=== PATIENT | male | born 1985 | race Caucasian/White ===

== ENCOUNTER 2018-07-16 16:23 | Emergency (ER) | payer SELFPAY ==
[2018-07-16] MEDS ORDERED: FAMOTIDINE 20 MG/2 ML VIAL IV ONE (17:38)
[2018-07-16] MEDS ORDERED: NA CHLORIDE 0.9% 1,000 ML ONE (17:38)
[2018-07-16] MEDS ORDERED: METHYLPREDNISOLONE 125 MG INJ ONE (17:38)
--- NOTE | 2018-07-16 17:58 | EDPHYS ---
Physician Documentation [facility] Name: Maurice Groves Age: 33 yrs Sex: Male : 1985 Arrival Date: 07/16/2018 Time: 16:24 Bed 27 Private MD: ED Physician Josue Sunshine HPI: 07/16 17:55 This 33 yrs old Male presents to ER via Ambulatory with complaints of Hives. kb 17:55 The patient presents with itching, rash, of the right leg and left leg. Onset: The kb symptoms/episode began/occurred 3 day(s) ago. Associated signs and symptoms: Pertinent positives: hives, Pertinent negatives: abdominal pain, Altered mental status chest pain, dysphagia, fever, headache, Light headed nausea, rash, shortness of breath, swelling, Syncope vomiting. Possible causes: The patient has no known obvious cause for the symptoms. At home the patient or guardian has treated the symptoms with Benadryl. Severity of symptoms: At their worst the symptoms were moderate in the emergency department the symptoms are unchanged. The patient has experienced similar episodes in the past, a few times. The patient has not recently seen a physician. Historical: - Allergies: 16:48 No Known Allergies; ph - Home Meds: 16:48 None [Active]; ph - PMHx: 16:48 None; ph - PSHx: 16:48 None; ph - Immunization history:: Adult Immunizations up to date. - Social history:: Smoking status: Patient uses tobacco products, smokes one-half pack cigarettes per day. - Ebola Screening: : No symptoms or risks identified at this time. ROS: 17:55 Constitutional: Negative for fever, chills, and weight loss, Cardiovascular: Negative kb for chest pain, palpitations, and edema, Respiratory: Negative for shortness of breath, cough, wheezing, and pleuritic chest pain, Abdomen/GI: Negative for abdominal pain, nausea, vomiting, diarrhea, and constipation, Back: Negative for injury and pain, : Negative for injury, bleeding, discharge, and swelling, MS/Extremity: Negative for injury and deformity, Neuro: Negative for headache, weakness, numbness, tingling, and seizure. 17:55 Skin: Positive for rash, of the right leg and left leg. Exam: 17:55 Constitutional: This is a well developed, well nourished patient who is awake, alert, kb and in no acute distress. Head/Face: Normocephalic, atraumatic. Chest/axilla: Normal chest wall appearance and motion. Nontender with no deformity. No lesions are appreciated. Cardiovascular: Regular rate and rhythm with a normal S1 and S2. No gallops, murmurs, or rubs. Normal PMI, no JVD. No pulse deficits. Respiratory: Lungs have equal breath sounds bilaterally, clear to auscultation and percussion. No rales, rhonchi or wheezes noted. No increased work of breathing, no retractions or nasal flaring. Abdomen/GI: Soft, non-tender, with normal bowel sounds. No distension or tympany. No guarding or rebound. No evidence of tenderness throughout. MS/ Extremity: Pulses equal, no cyanosis. Neurovascular intact. Full, normal range of motion. Neuro: Awake and alert, GCS 15, oriented to person, place, time, and situation. Cranial nerves II-XII grossly intact. Motor strength 5/5 in all extremities. Sensory grossly intact. Cerebellar exam normal. Normal gait. 17:55 Skin: consistent with urticaria, on the right leg and left leg. Vital Signs: 16:46 BP 128 / 88; Pulse 106; Resp 18; Temp 97.9; Pulse Ox 100% on R/A; Weight 97.52 kg; ph Height 5 ft. 10 in. (177.80 cm); 18:42 BP 133 / 87; Pulse 85; Resp 18; Temp 97.7; Pulse Ox 99% on R/A; ph 16:46 Body Mass Index 30.85 (97.52 kg, 177.80 cm) ph MDM: 17:24 Patient medically screened. kb 17:55 Data reviewed: vital signs, nurses notes. Data interpreted: Pulse oximetry: on room air kb is 100 %. Interpretation: normal. Counseling: I had a detailed discussion with the patient and/or guardian regarding: the historical points, exam findings, and any diagnostic results supporting the discharge/admit diagnosis, the need for outpatient follow up, a family practitioner, to return to the emergency department if symptoms worsen or persist or if there are any questions or concerns that arise at home. 07/16 17:30 Order name: IV Start; Complete Time: 17:34 kb Administered Medications: 17:36 Drug: NS 0.9% 1000 ml Route: IV; Rate: 1000 ml; Site: left antecubital; Delivery: tl3 Primary tubing; 18:30 Follow up: Response: No adverse reaction; IV Status: Completed infusion; IV Intake: sv 1000ml 17:38 Drug: Pepcid 20 mg Route: IVP; Site: left antecubital; sv 18:00 Follow up: Response: No adverse reaction sv 17:40 Drug: SOLU-Medrol 125 mg Route: IVP; Site: left antecubital; sv 18:00 Follow up: Response: No adverse reaction sv Disposition: 07/17 07:00 Co-signature as Attending Physician, Josue Sunshine MD I agree with the assessment and sonja plan of care. Disposition: 07/16/18 17:57 Discharged to Home. Impression: Urticaria. - Condition is Stable. - Discharge Instructions: Hives, [id number]. - Prescriptions for Pepcid 20 mg Oral Tablet - take 1 tablet by ORAL route every 12 hours for 5 days; 10 tablet. Prednisone 20 mg Oral Tablet - take 1 tablet by ORAL route once daily for 5 days; 5 tablet. - Medication Reconciliation Form, Thank You Letter, Antibiotic Education, Prescription Opioid Use form. - Follow up: Emergency Department; When: As needed; Reason: Worsening of condition. Follow up: Private Physician; When: 2 - 3 days; Reason: Recheck today's complaints, Continuance of care, Re-evaluation by your physician. Signatures: Yee Houston, KYLEIGH-C KYLEIGH-Ronel Meier RN RN sv Anderson, Corey, MD MD cha Hall, Patricia, RN RN Marianna Mckinnon RN RN tl3 Corrections: (The following items were deleted from the chart) 07/16 18:44 17:57 07/16/2018 17:57 Discharged to Home. Impression: Urticaria. Condition is Stable. ph Forms are Medication Reconciliation Form, Thank You Letter, Antibiotic Education, Prescription Opioid Use. Follow up: Emergency Department; When: As needed; Reason: Worsening of condition. Follow up: Private Physician; When: 2 - 3 days; Reason: Recheck today's complaints, Continuance of care, Re-evaluation by your physician. kb
--- NOTE | 2018-07-16 17:58 | ER ---
Nurse's Notes [facility] Name: Maurice Groves Age: 33 yrs Sex: Male : 1985 Arrival Date: 07/16/2018 Time: 16:24 Bed 27 Private MD: Diagnosis: Urticaria Presentation: 07/16 16:42 Presenting complaint: Patient states: " I think my food allergies are acting up again, ph I have hives all over my body." Pt reports that symptoms began 4 days ago, hives noted to srinivas arms, legs, trunk and buttocks. Pt denies SOB, reports multiple food allergies as a child. Transition of care: patient was not received from another setting of care. Onset: The symptoms/episode began/occurred last week. Anaphylaxis evaluation, no signs or symptoms of anaphylaxis were noted. Onset of symptoms was July 16, 2018. Risk Assessment: Do you want to hurt yourself or someone else? Patient reports no desire to harm self or others. Initial Sepsis Screen: Does the patient meet any 2 criteria? No. Patient's initial sepsis screen is negative. Does the patient have a suspected source of infection? No. Patient's initial sepsis screen is negative. 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 16:42 Method Of Arrival: Ambulatory ph 16:42 Acuity: [place] 4 ph Historical: - Allergies: 16:48 No Known Allergies; ph - Home Meds: 16:48 None [Active]; ph - PMHx: 16:48 None; ph - PSHx: 16:48 None; ph - Immunization history:: Adult Immunizations up to date. - Social history:: Smoking status: Patient uses tobacco products, smokes one-half pack cigarettes per day. - Ebola Screening: : No symptoms or risks identified at this time. Screenin:28 Abuse screen: Denies threats or abuse. Denies injuries from another. Nutritional sv screening: No deficits noted. Tuberculosis screening: No symptoms or risk factors identified. Fall Risk None identified. Assessment: 17:25 General: Appears in no apparent distress. uncomfortable, well developed, Behavior is sv calm, cooperative, appropriate for age. Pain: Denies pain. Neuro: Level of Consciousness is awake, alert, obeys commands, Oriented to person, place, time, situation, Moves all extremities. Full function. Cardiovascular: Patient's skin is warm and dry. Respiratory: Airway is patent Respiratory effort is even, unlabored, Respiratory pattern is regular, symmetrical, Breath sounds are clear bilaterally. Derm: Skin is normal, Rash noted that is urticaria, on back, chest, abdomen, right arm, left arm, right leg and left leg started 4 days ago. Musculoskeletal: No signs and/or symptoms reported regarding the musculoskeletal system. Vital Signs: 16:46 BP 128 / 88; Pulse 106; Resp 18; Temp 97.9; Pulse Ox 100% on R/A; Weight 97.52 kg; ph Height 5 ft. 10 in. (177.80 cm); 18:42 BP 133 / 87; Pulse 85; Resp 18; Temp 97.7; Pulse Ox 99% on R/A; ph 16:46 Body Mass Index 30.85 (97.52 kg, 177.80 cm) ph ED Course: 16:24 Patient arrived in ED. as 16:46 Triage completed. ph 16:48 Arm band placed on. ph 17:24 Yee Houston FNP-C is PHCP. kb 17:24 Josue Sunshine MD is Attending Physician. kb 17:25 Ronel Kilpatrick RN is Primary Nurse. sv 17:28 Patient has correct armband on for positive identification. Bed in low position. Door sv closed. Head of bed elevated. 17:33 Inserted saline lock: 18 gauge in left antecubital area, using aseptic technique. sv Flushed left antecubital with 5 ml normal saline. 18:43 No provider procedures requiring assistance completed. IV discontinued, intact, ph bleeding controlled, No redness/swelling at site. Pressure dressing applied. Administered Medications: 17:36 Drug: NS 0.9% 1000 ml Route: IV; Rate: 1000 ml; Site: left antecubital; Delivery: tl3 Primary tubing; 18:30 Follow up: Response: No adverse reaction; IV Status: Completed infusion; IV Intake: sv 1000ml 17:38 Drug: Pepcid 20 mg Route: IVP; Site: left antecubital; sv 18:00 Follow up: Response: No adverse reaction sv 17:40 Drug: SOLU-Medrol 125 mg Route: IVP; Site: left antecubital; sv 18:00 Follow up: Response: No adverse reaction sv Intake: 18:30 IV: 1000ml; Total: 1000ml. sv Outcome: 17:57 Discharge ordered by MD. tirado 18:43 Discharged to home ambulatory. ph 18:43 Condition: good 18:43 Discharge instructions given to patient, Instructed on discharge instructions, follow up and referral plans. medication usage, Demonstrated understanding of instructions, follow-up care, medications, Prescriptions given X 2. 18:44 Patient left the ED. ph Signatures: Yee Houston, C2 TACTICAL ANALYSIS TECHNICIAN-C C2 TACTICAL ANALYSIS TECHNICIAN-Ronel Meier, RN RN Amaris Cardona Patricia, RN RN Marianna Mckinnon, RN RN tl3
[2018-07-16 18:54] VITALS: BP 133/87; TEMP 97.7; O2SAT 99
== END 2018-07-16 18:44 | disposition home or self-care (01) ==
LOC: ER 16:23
DX: L50.9 Urticaria, unspecified (principal); F17.210 Nicotine dependence, cigarettes, uncomplicated
CPT/HCPCS: 96361; 96374; 96375; 99283; J2930; J7030

== ENCOUNTER 2018-09-16 10:11 | Emergency (ER) | payer SELFPAY ==
[2018-09-16] MEDS ORDERED: FAMOTIDINE 20 MG/2 ML VIAL IV ONE (10:30)
[2018-09-16] MEDS ORDERED: METHYLPREDNISOLONE 125 MG INJ ONE (10:30)
--- NOTE | 2018-09-16 10:43 | ER ---
Nurse's Notes [facility] Name: Maurice Groves Age: 33 yrs Sex: Male : 1985 Arrival Date: 09/16/2018 Time: 10:11 Bed 6 Private MD: Diagnosis: Urticaria Presentation: 09/16 10:06 Presenting complaint: EMS states: called out for SOB, on arrival pt was A\T\O x4 sv ambulatory on scene. Lungs CTA, 98% RA BP 130/80. Hives started to entire body 2 days ago. Pt reports taking 5 tabs Benadryl last night and 5 tabs of Benadryl this morning at 0800. Transition of care: patient was not received from another setting of care. Onset: The symptoms/episode began/occurred 2 day(s) ago. Anaphylaxis evaluation, no signs or symptoms of anaphylaxis were noted. Onset of symptoms was September 14, 2018. Risk Assessment: Do you want to hurt yourself or someone else? Patient reports no desire to harm self or others. Initial Sepsis Screen: Does the patient meet any 2 criteria? No. Patient's initial sepsis screen is negative. Does the patient have a suspected source of infection? No. Patient's initial sepsis screen is negative. Care prior to arrival: None. 10:06 Method Of Arrival: EMS: [facility] sv 10:06 Acuity: [place] 3 sv Triage Assessment: 10:10 General: Appears in no apparent distress. uncomfortable, well developed, Behavior is sv calm, cooperative, appropriate for age. Pain: Denies pain. EENT: No signs and/or symptoms were reported regarding the EENT system. Neuro: Level of Consciousness is awake, alert, obeys commands, Oriented to person, place, time, situation, Moves all extremities. Full function Gait is steady, Speech is normal. Cardiovascular: Heart tones S1 S2 present Patient's skin is warm and dry. Respiratory: Airway is patent Respiratory effort is even, unlabored, Respiratory pattern is regular, symmetrical, Breath sounds are clear bilaterally. Derm: Skin is pink, warm \T\ dry. Rash noted that is itchy, red, raised, urticaria, on back, chest, abdomen, right arm, left arm, right leg and left leg. Musculoskeletal: Range of motion: intact in all extremities. Historical: - Allergies: 17:57 No Known Allergies; sv - Home Meds: 17:57 None [Active]; sv - PMHx: 17:57 seasonal allergies; sv - PSHx: 17:57 None; sv - Immunization history:: Adult Immunizations up to date. - Social history:: Smoking status: Patient uses tobacco products, smokes one-half pack cigarettes per day. - Ebola Screening: : No symptoms or risks identified at this time. Screenin:10 Abuse screen: Denies threats or abuse. Denies injuries from another. Nutritional sv screening: No deficits noted. Tuberculosis screening: No symptoms or risk factors identified. Fall Risk None identified. Assessment: 11:25 Reassessment: Patient is alert, oriented x 3, equal unlabored respirations, skin aa5 warm/dry/pink. Vital Signs: 10:10 BP 115 / 74; Pulse 90; Resp 18; Temp 98.7; Pulse Ox 96% ; Weight 97.52 kg; Height 5 ft. sv 9 in. (175.26 cm); Pain 0/10; 11:23 BP 122 / 80; Pulse 84; Resp 16 S; Temp 97.6(TE); Pulse Ox 99% on R/A; aa5 10:10 Body Mass Index 31.75 (97.52 kg, 175.26 cm) sv ED Course: 10:10 Patient has correct armband on for positive identification. Placed in gown. Bed in low sv position. monitoring coordinator on. Pulse ox on. NIBP on. Door closed. Warm blanket given. 10:10 Arm band placed on. sv 10:11 Patient arrived in ED. sv 10:12 Ronel Kilpatrick RN is Primary Nurse. sv 10:12 Ivan Guevara MD is Attending Physician. gs 10:13 Initial lab(s) drawn, by me. Inserted saline lock: 20 gauge in right antecubital area, jl7 using aseptic technique. Blood collected. 10:14 Triage completed. sv 11:25 IV discontinued, intact, bleeding controlled, No redness/swelling at site. Pressure aa5 dressing applied. 11:25 No provider procedures requiring assistance completed. sv Administered Medications: 10:28 Drug: Pepcid 20 mg Route: IVP; Site: right antecubital; sv 11:25 Follow up: Response: No adverse reaction aa5 10:30 Drug: SOLU-Medrol 125 mg Route: IVP; Site: right antecubital; sv 11:25 Follow up: Response: No adverse reaction aa5 10:33 CANCELLED (d/c'd by Dr Guevara): Benadryl 50 mg PO once sv Outcome: 10:42 Discharge ordered by . gs 11:25 Discharged to home ambulatory. aa5 11:25 Condition: stable 11:25 Discharge instructions given to patient, Instructed on discharge instructions, follow up and referral plans. medication usage, Demonstrated understanding of instructions, follow-up care, medications, Prescriptions given X 3. 11:26 Patient left the ED. sv Signatures: Ronel Kilpatrick RN RN sv Carolyn Connolly RN RN aa5 Femi Joyner RN RN jl7 Ivan Guevara MD MD gs Corrections: (The following items were deleted from the chart) 17:58 10:42 PMHx: None; sv
--- NOTE | 2018-09-16 10:44 | EDPHYS ---
Physician Documentation [facility] Name: Maurice Groves Age: 33 yrs Sex: Male : 1985 Arrival Date: 09/16/2018 Time: 10:11 Bed 6 Private MD: ED Physician Ivan Guevara HPI: 09/16 10:37 This 33 yrs old Male presents to ER via EMS with complaints of Allergic gs Reaction, Hives. 10:37 The patient presents with itching, rash. Onset: The symptoms/episode began/occurred 5 gs day(s) ago. Associated signs and symptoms: Pertinent negatives: chest pain, shortness of breath. Possible causes: The patient has no known obvious cause for the symptoms. At home the patient or guardian has treated the symptoms with Benadryl. Severity of symptoms: At their worst the symptoms were moderate in the emergency department the symptoms are unchanged. The patient has experienced similar episodes in the past, multiple times. The patient has not recently seen a physician. Historical: - Allergies: 17:57 No Known Allergies; sv - Home Meds: 17:57 None [Active]; sv - PMHx: 17:57 seasonal allergies; sv - PSHx: 17:57 None; sv - Immunization history:: Adult Immunizations up to date. - Social history:: Smoking status: Patient uses tobacco products, smokes one-half pack cigarettes per day. - Ebola Screening: : No symptoms or risks identified at this time. ROS: 10:37 All other systems are negative. gs Exam: 10:37 Head/Face: Normocephalic, atraumatic. Eyes: Pupils equal round and reactive to light, gs extra-ocular motions intact. Lids and lashes normal. Conjunctiva and sclera are non-icteric and not injected. Cornea within normal limits. Periorbital areas with no swelling, redness, or edema. ENT: Nares patent. No nasal discharge, no septal abnormalities noted. Tympanic membranes are normal and external auditory canals are clear. Oropharynx with no redness, swelling, or masses, exudates, or evidence of obstruction, uvula midline. Mucous membranes moist. Neck: Trachea midline, no thyromegaly or masses palpated, and no cervical lymphadenopathy. Supple, full range of motion without nuchal rigidity, or vertebral point tenderness. No Meningismus. Chest/axilla: Normal chest wall appearance and motion. Nontender with no deformity. No lesions are appreciated. Cardiovascular: Regular rate and rhythm with a normal S1 and S2. No gallops, murmurs, or rubs. Normal PMI, no JVD. No pulse deficits. Respiratory: Lungs have equal breath sounds bilaterally, clear to auscultation and percussion. No rales, rhonchi or wheezes noted. No increased work of breathing, no retractions or nasal flaring. Abdomen/GI: Soft, non-tender, with normal bowel sounds. No distension or tympany. No guarding or rebound. No evidence of tenderness throughout. Back: No spinal tenderness. No costovertebral tenderness. Full range of motion. MS/ Extremity: Pulses equal, no cyanosis. Neurovascular intact. Full, normal range of motion. Neuro: Awake and alert, GCS 15, oriented to person, place, time, and situation. Cranial nerves II-XII grossly intact. Motor strength 5/5 in all extremities. Sensory grossly intact. Cerebellar exam normal. Normal gait. 10:37 Constitutional: The patient appears alert, awake. 10:37 Skin: rash a moderate rash is noted, rash can be described as urticarial, and is diffusely located. Vital Signs: 10:10 BP 115 / 74; Pulse 90; Resp 18; Temp 98.7; Pulse Ox 96% ; Weight 97.52 kg; Height 5 ft. sv 9 in. (175.26 cm); Pain 0/10; 11:23 BP 122 / 80; Pulse 84; Resp 16 S; Temp 97.6(TE); Pulse Ox 99% on R/A; aa5 10:10 Body Mass Index 31.75 (97.52 kg, 175.26 cm) sv MDM: 10:14 Patient medically screened. gs 10:37 Differential diagnosis: angioedema, urticaria. Data reviewed: vital signs, nurses gs notes. Response to treatment: the patient's symptoms have markedly improved after treatment, and as a result, I will discharge patient. Administered Medications: 10:28 Drug: Pepcid 20 mg Route: IVP; Site: right antecubital; sv 11:25 Follow up: Response: No adverse reaction aa5 10:30 Drug: SOLU-Medrol 125 mg Route: IVP; Site: right antecubital; sv 11:25 Follow up: Response: No adverse reaction aa5 10:33 CANCELLED (d/c'd by Dr Guevara): Benadryl 50 mg PO once sv Disposition: 09/16/18 10:42 Discharged to Home. Impression: Urticaria. - Condition is Stable. - Prescriptions for Pepcid 20 mg Oral Tablet - take 1 tablet by ORAL route every 12 hours for 5 days; 10 tablet. Prednisone 20 mg Oral Tablet - take 1 tablet by ORAL route once daily for 5 days; 5 tablet. Zyrtec 10 mg Oral Tablet - take 1 tablet by ORAL route once daily As needed; 20 tablet. - Medication Reconciliation Form, Thank You Letter, Antibiotic Education, Prescription Opioid Use form. - Follow up: Private Physician; When: 2 - 3 days; Reason: Re-evaluation by your physician. Signatures: Ronel Kilpatrick RN RN Ivan Guevara MD MD Carolyn Connolly RN aa5 Corrections: (The following items were deleted from the chart) 10:33 10:15 Benadryl 50 mg PO once ordered. sv 11:26 10:42 09/16/2018 10:42 Discharged to Home. Impression: Urticaria. Condition is Stable. sv Forms are Medication Reconciliation Form, Thank You Letter, Antibiotic Education, Prescription Opioid Use. Follow up: Private Physician; When: 2 - 3 days; Reason: Re-evaluation by your physician. 17:58 10:42 PMHx: None; sv
== END 2018-09-16 11:26 | disposition home or self-care (01) ==
LOC: ER 10:11
DX: L50.9 Urticaria, unspecified (principal); F17.210 Nicotine dependence, cigarettes, uncomplicated
CPT/HCPCS: 96374; 96375; 99284; J2930